=== PATIENT | female | born 1960 | race Caucasian/White ===

== ENCOUNTER 2024-03-22 08:26 | Outpatient (CLI) | payer BC | END 2024-03-22 08:27 | disposition home or self-care (01) | LOC: CSHSLEEP 08:26 | PROVIDERS: ATTEND Family Medicine | DX: G47.33 Obstructive sleep apnea (adult) (pediatric) (principal); R09.89 Other specified symptoms and signs involving the circulatory and respiratory systems; R51.9 Headache, unspecified; R06.83 Snoring | CPT/HCPCS: 95800 ==

== ENCOUNTER 2024-04-01 09:20 | Outpatient (CLI) | payer BC | END 2024-04-01 09:21 | disposition home or self-care (01) | LOC: CSHSLEEP 09:20 | PROVIDERS: ATTEND Family Medicine | DX: G47.33 Obstructive sleep apnea (adult) (pediatric) (principal); R09.89 Other specified symptoms and signs involving the circulatory and respiratory systems; R51.9 Headache, unspecified; R06.83 Snoring | CPT/HCPCS: 95811 ==